=== PATIENT | male | born 1995 | race Two or more races ===

== ENCOUNTER 2019-09-29 03:24 | Emergency (ER) | payer MEDICAID ==
[~2019-09-29] VITALS: Ht 165.1 cm; Wt 74.8 kg
[2019-09-29 03:29] VITALS: BP 154/88
== END 2019-09-29 04:47 | disposition left against medical advice (07) ==
LOC: ER 03:27
DX: F41.9 Anxiety disorder, unspecified (principal); Z53.21 Procedure and treatment not carried out due to patient leaving prior to being seen by health care provider